=== PATIENT | male | born 1980 | race Caucasian/White ===

== ENCOUNTER 2016-12-06 20:21 | Emergency (ER) | payer BC, OTHER ==
[2016-12-06 20:30] VITALS: BP 143/74
--- NOTE | 2016-12-10 08:14 | ER ---
Date of Service: 12/06/2016 SUBJECTIVE: Mr. Harris he presents to the emergency room with complaints of left ankle pain. He states that he was out playing in the yard with his children when he twisted his ankle and is now experiencing pain both in the area of the medial and lateral malleolus as well as to the midportion of his lower leg in the area of the distal tibia and fibula. The patient states that he has had a "high ankle sprain" in the past and states that the discomfort is similar to that. He states that he is not experiencing any difficulties with ambulation or crepitus. Denies any numbness or tingling in his toes. Denies any previous injury to this area in the past. PAST MEDICAL HISTORY: Denies. MEDICATIONS: None. ALLERGIES: NKDA. PHYSICAL EXAMINATION: General: This is a 36-year-old male patient, who is in no acute distress. Vital Signs: Blood pressure is 143/74, pulse rate is 87, temperature is 36.7, respiratory rate 16, O2 saturations 98%. Skin: Warm, pink, and dry. HEENT: Head is normocephalic and atraumatic. Musculoskeletal: Again, does have pain to the medial and lateral aspect of the ankle as well as pain to the anterior aspect between the tibia and fibula. No obvious crepitus or deformity noted. His drawer test is negative. No significant edema noted to the ankle. No ecchymosis is noted. RADIOGRAPHIC DATA: Radiographs of the patient's ankle were obtained. There was no evidence of any acute bony injury. ASSESSMENT: Acute ankle sprain. PLAN: Ice massage for 15 to 20 minutes every 1 to 2 hours. He was placed in Erasto wrap with an Aircast type splint. He should be off work. I did start him on physical therapy. If he is continuing to have discomfort after 5 to 7 days, he should follow up in the clinic. Ibuprofen 600 mg every 6 to 8 hours as needed for pain. He was offered crutches as well to help with ambulation. All questions were answered. MWK: 12/07/2016 14:15:47 MODL: 12/07/2016 20:03:03 /[id number]
--- NOTE | 2016-12-12 07:45 | ER ---
Date of Service: 12/06/2016 ADDENDUM: REVIEW OF SYSTEMS: Denies any injury other than the other than what was previously mentioned in his history of present illness. He denies any numbness or tingling distal to the area of injury. MWK: 12/11/2016 15:16:02 MODL: 12/11/2016 19:02:25 /[id number]
== END 2016-12-06 21:58 | disposition home or self-care (01) ==
LOC: VM.ED 20:21
DX: S93.402A Sprain of unspecified ligament of left ankle, initial encounter (principal); X50.1XXA Overexertion from prolonged static or awkward postures, initial encounter; Y92.096 Garden or yard of other non-institutional residence as the place of occurrence of the external cause
CPT/HCPCS: 73610-LT; 99283

== ENCOUNTER 2023-05-26 10:39 | Emergency (ER) | payer BC, OTHER ==
[2023-05-26 11:08] LABS: BASOPHILS PERCENT AUTO 0.5 % (0.2-1.2); EOSINOPHILS ABSOLUTE AUTO 0.1 x10^3/uL (0.0-0.5); EOSINOPHILS PERCENT AUTO 1.8 % (0.0-4.0); HEMATOCRIT 41.3 % (40.0-52.0); HEMOGLOBIN 14.3 g/dL (14.0-18.0); LYMPHOCYTES ABSOLUTE AUTO 1.1 x10^3/uL (1.0-4.8); LYMPHOCYTES PERCENT AUTO 28.5 % (25.0-50.0); MEAN CORPUSCULAR HEMOGLOBIN 30.6 pg (26.0-32.0); MEAN CORPUSCULAR HGB CONC 34.6 g/dL (32.0-36.0); MEAN CORPUSCULAR VOLUME 88.2 fL (78.0-93.0); MONOCYTES ABSOLUTE AUTO 0.4 x10^3/uL (0.0-0.8); NEUTROPHILS ABSOLUTE AUTO 2.2 x10^3/uL (1.8-7.7); NEUTROPHILS PERCENT AUTO 58.2 % (50.0-80.0); PLATELET COUNT,PLT 186 x10^3/uL (130-400); RED BLOOD CELL COUNT 4.68 x10^6/uL (4.5-6.0); WHITE BLOOD CELL COUNT,WBC 3.8 x10^3/uL (4.0-10.0)
[2023-05-26 11:26] LABS: A/G RATIO 1.37; ALANINE AMINOTRANSFERASE,ALT 29 U/L (16-63); ALBUMIN 4.1 g/dL (3.4-5.0); ALKALINE PHOSPHATASE 61 U/L (46-116); ASPARTATE AMNIOTRANSFERASE,AST 17 U/L (15-37); BILIRUBIN TOTAL 0.5 mg/dL (0.2-1.0); BLOOD UREA NITROGEN,BUN 15 mg/dL (7-18); CALCIUM 9.2 mg/dL (8.5-10.1); CARBON DIOXIDE,CO2 29 mmol/L (21-32); CHLORIDE,CL 103 mmol/L (98-107); GLUCOSE RANDOM 106 mg/dL (70-99); POTASSIUM,K 4.3 mmol/L (3.5-5.1); PROTEIN TOTAL,TP 7.1 g/dL (6.4-8.2); SODIUM,NA 140 mmol/L (136-145)
[2023-05-26 11:27] LABS: ANION GAP 12.3 mmol/L (5-15); ESTIMATED GFR 97 mL/min (>=60)
[2023-05-26 11:28] LABS: CREATINE KINASE,CK 103 U/L (39-308)
== END 2023-05-26 11:58 | disposition home or self-care (01) ==
LOC: VM.ED 10:39
DX: M62.81 Muscle weakness (generalized) (principal); I10 Essential (primary) hypertension; I48.91 Unspecified atrial fibrillation
CPT/HCPCS: 36415; 70450; 80053; 82550; 84484; 85025; 93005; 99284